=== PATIENT | male | born 1995 | race Caucasian/White ===

== ENCOUNTER → 2016-04-17 | Outpatient (CLI) | payer MEDICAID ==
[2016-04-17 11:11] LABS: BASO % 0.1 % (0.0-1.0); EOS # 0.1 K/mm3 (0.0-0.50); EOS % 1.2 % (0.0-3.0); LARGE UNSTAINED CELL # 0.1 K/mm3 (0.0-0.4); LARGE UNSTAINED CELL % 1.3 % (0.0-4.0); LYMPH # 1.3 K/mm3 (1.5-6.5); LYMPH % 18.1 % (24.0-44.0); MEAN CORPUSCULAR HEMOGLOBIN 29.2 pg (27.0-33.0); MEAN CORPUSCULAR HGB CONC 34.4 g/dl (32.0-36.5); MONO # 0.2 K/mm3 (0.0-0.8); MONO % 3.1 % (0.0-5.0); NEUTROPHILS # 5.5 K/mm3 (1.8-7.7); NEUTROPHILS % 76.1 % (36.0-66.0); RED CELL DISTRIBUTION WIDTH 13.7 % (11.5-14.5); WHITE BLOOD COUNT 7.2 K/mm3 (4.0-10.0)
[2016-04-17 11:29] LABS: PLATELET COUNT, AUTOMATED 66 k/mm3 (150-450)
== END ==
LOC: M LAB 10:28
PROVIDERS: ATTEND Family Medicine Addiction Medicine
DX: E05.90 Thyrotoxicosis, unspecified without thyrotoxic crisis or storm (principal); Q87.2 Congenital malformation syndromes predominantly involving limbs

== ENCOUNTER → 2016-05-08 | Emergency (ER) | payer MEDICAID ==
[~2016-05-08] VITALS: Ht 152.4 cm; Wt 49.9 kg
[2016-05-08 16:11] VITALS: BP 99/55
== END | disposition home or self-care (01) ==
LOC: M ED 14:38
DX: F43.0 Acute stress reaction (principal); R45.89 Other symptoms and signs involving emotional state; E73.9 Lactose intolerance, unspecified

== ENCOUNTER → 2018-05-15 | Outpatient (REF) | payer MEDICARE, MEDICAID ==
[2018-05-15 12:53] LABS: ALBUMIN 4.5 GM/DL (3.2-5.2); ALT/SGPT 17 U/L (12-78); BLOOD UREA NITROGEN 10 MG/DL (7-18); CALCIUM LEVEL 8.8 MG/DL (8.5-10.1); CARBON DIOXIDE LEVEL 29 MEQ/L (21-32); CHLORIDE LEVEL 107 MEQ/L (98-107); CHOLESTEROL LEVEL 136 MG/DL (<200); CHOLESTEROL RISK RATIO 3.162 (<5); CREATININE FOR GFR 0.75 MG/DL (0.70-1.30); GLOMERULAR FILTRATION RATE > 60.0 (>60); GLUCOSE, FASTING 96 MG/DL (70-100); HDL CHOLESTEROL 43 MG/DL (>40); LDL CHOLESTEROL 72 MG/DL (<100); NON-HDL-C 93 MG/DL; POTASSIUM SERUM 3.7 MEQ/L (3.5-5.1); SODIUM LEVEL 141 MEQ/L (136-145); TOTAL PROTEIN 7.5 GM/DL (6.4-8.2); TRIGLYCERIDES LEVEL 104 MG/DL (<150)
== END ==
LOC: M LAB REF 12:14
PROVIDERS: ATTEND Family Medicine Addiction Medicine
DX: Z00.00 Encounter for general adult medical examination without abnormal findings (principal); E05.90 Thyrotoxicosis, unspecified without thyrotoxic crisis or storm

== ENCOUNTER 2019-02-15 21:28 | Emergency (ER) | payer MEDICARE, MEDICAID ==
[~2019-02-15] VITALS: Ht 152.4 cm; Wt 50.0 kg
[2019-02-15 21:28] VITALS: BP 143/91
== END 2019-02-15 21:53 | disposition home or self-care (01) ==
LOC: M ED 21:28
DX: T16.1XXA Foreign body in right ear, initial encounter (principal); X58.XXXA Exposure to other specified factors, initial encounter; Y92.89 Other specified places as the place of occurrence of the external cause

== ENCOUNTER 2020-05-13 16:49 | Emergency (ER) | payer MEDICARE, MEDICAID ==
[2020-05-13 17:08] VITALS: BP 115/73
== END 2020-05-13 18:28 | disposition home or self-care (01) ==
LOC: M ED 16:49
DX: F41.9 Anxiety disorder, unspecified (principal); Q87.2 Congenital malformation syndromes predominantly involving limbs; Z91.011 Allergy to milk products

== ENCOUNTER 2020-12-22 21:58 | Emergency (ER) | payer MEDICARE, MEDICAID ==
[~2020-12-22] VITALS: Ht 157.5 cm; Wt 50.4 kg
[2020-12-22 21:59] VITALS: BP 142/87
--- OUTSIDE RECORDS SUMMARY | 2020-12-22 22:06 | CCD ---
Author Author [facility] Organization [facility] Address Unknown Phone Unavailable Care Team Providers Care Assembler Installer General Name Role Phone Alejandra Garcia MD Unavailable Unavailable Alejandra Garcia MD Unavailable Unavailable Alejandra Garcia MD Unavailable Unavailable Alejandra Garcia MD Unavailable Unavailable Alejandra Garcia MD Unavailable Unavailable Alejandra Garcia MD Unavailable Unavailable Alejandra Garcia MD Unavailable Unavailable Alejandra Garcia MD Unavailable Unavailable Alejandra Garcia MD Unavailable Unavailable Alejandra Garcia MD Unavailable Unavailable Alejandra Garcia MD Unavailable Unavailable Alejandra Garcia MD Unavailable Unavailable Alejandra Garcia MD Unavailable Unavailable Alejandra Garcia MD Unavailable Unavailable Alejandra Garcia MD Unavailable Unavailable Alejandra Garcia MD Unavailable Unavailable Alejandra Garcia MD Unavailable Unavailable Alejandra Garcia MD Unavailable Unavailable Alejandra Garcia MD Unavailable Unavailable Alejandra Garcia MD Unavailable Unavailable Alejandra Garcia MD Unavailable Unavailable Alejandra Garcia MD Unavailable Unavailable Alejandra Garcia MD Unavailable Unavailable Alejandra Garcia MD Unavailable Unavailable Alejandra Garcia MD Unavailable Unavailable Alejandra Garcia MD Unavailable Unavailable Alejandra Garcia MD Unavailable Unavailable Alejandra Garcia MD Unavailable Unavailable Alejandra Garcia MD Unavailable Unavailable Alejandra Garcia MD Unavailable Unavailable Alejandra Garcia MD Unavailable Unavailable Alejandra Garcia MD Unavailable Unavailable Alejandra Garcia MD Unavailable Unavailable Alejandra Garcia MD Unavailable Unavailable Alejandra Garcia MD Unavailable Unavailable Alejandra Garcia MD Unavailable Unavailable Alejandra Garcia MD Unavailable Unavailable Alejandra Garcia MD Unavailable Unavailable Alejandra Garcia MD Unavailable Unavailable Alejandra Garcia MD Unavailable Unavailable Alejandra Garcia MD Unavailable Unavailable Alejandra Garcia MD Unavailable Unavailable Alejandra Garcia MD Unavailable Unavailable Alejandra Garcia MD Unavailable Unavailable Alejandra Garcia MD Unavailable Unavailable Alejandra Garcia MD Unavailable Unavailable Garcia, Alejandra Herrera MD Unavailable Unavailable Garcia, Alejandra Herrera MD Unavailable Unavailable Garcia, Alejandra Herrera MD Unavailable Unavailable Garcia, Alejandra Herrera MD Unavailable Unavailable Garcia, D Javier MD Unavailable Unavailable Garcia, D Javier MD Unavailable Unavailable Garcia, D Javier MD Unavailable Unavailable Garcia, D Javier MD Unavailable Unavailable Garcia, D Javier MD Unavailable Unavailable Garcia, D Javier MD Unavailable Unavailable Garcia, Alejandra Herrera MD Unavailable Unavailable Garcia, Alejandra Herrera MD Unavailable Unavailable Garcia, D Javier MD Unavailable Unavailable Garcia, Alejandra Herrera MD Unavailable Unavailable Garcia, Alejandra Herrera MD Unavailable Unavailable Garcia, Alejandra Herrera MD Unavailable Unavailable Garcia, Alejandra Herrera MD Unavailable Unavailable Garcia, Alejandra Herrera MD Unavailable Unavailable Garcia, Alejandra Herrera MD Unavailable Unavailable Garcia, Alejandra Herrera MD Unavailable Unavailable Garcia, Alejandra Herrera MD Unavailable Unavailable Garcia, Alejandra Herrera MD Unavailable Unavailable Garcia, Alejandra Herrera MD Unavailable Unavailable Garcia, D Javier MD Unavailable Unavailable Garcia, D Javier MD Unavailable Unavailable Garcia, D Javier MD Unavailable Unavailable Garcia, D Javier MD Unavailable Unavailable Garcia, Alejandra Herrera MD Unavailable Unavailable Agrcia, Alejandra Herrera MD Unavailable Unavailable Garcia, Alejandra Herrera MD Unavailable Unavailable Garcia, Alejandra Herrera MD Unavailable Unavailable Garcia, Alejandra Herrera MD Unavailable Unavailable Garcia, Alejandra Herrera MD Unavailable Unavailable Garcia, Alejandra Herrera MD Unavailable Unavailable Garcia, Alejandra Herrera MD Unavailable Unavailable Garcia, Alejandra Herrera MD Unavailable Unavailable Garcia, Alejandra Herrera MD Unavailable Unavailable Garcia, Alejandra Herrera MD Unavailable Unavailable Garcia, Alejandra Herrera MD Unavailable Unavailable Garcia, Alejandra Herrera MD Unavailable Unavailable Garcia, Alejandra Herrera MD Unavailable Unavailable Garcia, D Javier MD Unavailable Unavailable Garcia, Alejandra Herrera MD Unavailable Unavailable Garcia, Alejandra Herrera MD Unavailable Unavailable Garcia, Alejandra Herrera MD Unavailable Unavailable Garcia, Alejandra Herrera MD Unavailable Unavailable Garcia, Alejandra Herrera MD Unavailable Unavailable Re-disclosure Warning The records that you are about to access may contain information from federally-assisted alcohol or drug abuse programs. If such information is present, then the following federally mandated warning applies: This information has been disclosed to you from records protected by federal confidentiality rules (42 CFR part 2). The federal rules prohibit you from making any further disclosure of this information unless further disclosure is expressly permitted by the written consent of the person to whom it pertains or as otherwise permitted by 42 CFR part 2. A general authorization for the release of medical or other information is NOT sufficient for this purpose. The Federal rules restrict any use of the information to criminally investigate or prosecute any alcohol or drug abuse patient.The records that you are about to access may contain highly sensitive health information, the redisclosure of which is protected by Article 27-F of the [facility] Public Health law. If you continue you may have access to information: Regarding HIV / AIDS; Provided by facilities licensed or operated by the [facility] Office of Mental Health; or Provided by the [facility] Office for People With Developmental Disabilities. If such information is present, then the following [facility] mandated warning applies: This information has been disclosed to you from confidential records which are protected by state law. State law prohibits you from making any further disclosure of this information without the specific written consent of the person to whom it pertains, or as otherwise permitted by law. Any unauthorized further disclosure in violation of state law may result in a fine or [place] [facility] sentence or both. A general authorization for the release of medical or other information is NOT sufficient authorization for further disc losure. Encounters Encounter Providers Location Date Indications Data Source(s ) Javier Garcia MD: [address] [place] [phone], Ph. Attender: Javier Garcia MD [facility] Medical 12/07/2020 12:00:00 AM EDT AG ([facility]) Javier Garcia MD: [address] [place] [phone], Ph. Attender: Javier Garcia MD [facility] Medical 12/02/2020 12:00:00 AM EDT AG ([facility]) Javier Garcia MD: [address] [place] [phone], Ph. Attender: Javier Garcia MD [facility] Medical 12/02/2020 12:00:00 AM EDT AG ([facility]) Medications No Information Insurance Providers Payer name Policy type / Coverage type Policy ID Covered constitution party ID Covered constitution party's relationship to gage Policy Gage Plan Information MEDICAID M [id number] Self [id number] Medicaid P [id number] S [id number] Medicaid S [id number] S [id number] MEDICARE [id number] SP [id number] G56 Medicare P [id number] S [id number] G56 Medicaid S [id number] S [id number] Medicare P [id number] S [id number] [place] [id number] SP [id number] Z MEDICAID [id number] S [id number] [place] [id number] SP [id number] MEDICAID [id number] SP [id number] MEDICAID [id number] SP [id number] MEDICARE [id number] SP [id number] G56 Medicare P [id number] S [id number] G56 Problems, Conditions, and Diagnoses No Information Surgeries/Procedures No Information Results No Information Social History No Information Vital Signs ID Date Data Source UNK Name Value Range Interpretation Code Description Data Source(s) Body height 62 [in_i] 62 [in_i] [place] ([facility]) Diastolic blood pressure 67 mm[Hg] 67 mm[Hg] [place] ([facility]) Body height 62 [in_i] 62 [in_i] [place] ([facility]) Body mass index (BMI) [Ratio] 18.9 kg/m2 18.9 k g/m2 [place] ([facility]) Systolic blood pressure 103 mm[Hg] 103 mm[Hg] [facility]) Body weight 1656 [oz_av] 1656 [oz_av] [place] ([facility]) Diastolic blood pressure 67 mm[Hg] 67 mm[Hg] [facility] ([facility]) Body height 62 [in_i] 62 [in_i] [facility] ([facility]) Body mass index (BMI) [Ratio] 18.9 kg/m2 18.9 k g/m2 [facility] ([facility]) Systolic blood pressure 103 mm[Hg] 103 mm[Hg] [facility]) Body weight 1656 [oz_av] 1656 [oz_av] [facility] ([facility])
--- OUTSIDE RECORDS SUMMARY | 2020-12-22 22:06 | CCD ---
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 Past Encounters 12/02/2020 Adult Health Examination; Radial Aplasia-thrombocytopenia Syndrome Javier Garcia MD: [address] [place] [address], Ph. Social History Tobacco Smoking Status Never Smoker Vaccine List Vaccine Type Hep A, unspecified formulation 08/02/2006 09/09/2007 Hep B, unspecified formulation 05/09/1997 09/22/1997 04/08/1998 Influenza, injectable, MDCK, preservativ e free, quadrivalent 05/07/20180.5 mL influenza, seasonal, injectable 03/18/20150.5 mL 04/25/20170.5 mL meningococcal, unspecified formulation 03/18/20150.5 mL Tdap 10/06/2008 05/07/20180.5 mL Plan of Care Reminders Provider Appointments None recorded. Lab None recorded. Referral None recorded. Procedures None recorded. Surgeries None recorded. Imaging None recorded. Vitals 12/02/2020 02:20PM ANNUAL EXAM Height Weight BMI Blood Pressure 62 in 103 lbs 8 oz 18.9 kg/m2 103/67 mm[Hg] 05/07/2018 Height Weight BMI Blood Pressure 60.5 in 109 lbs 8 oz 21.11 kg/m2 111/72 mm[Hg]
--- OUTSIDE RECORDS SUMMARY | 2020-12-22 22:06 | CCD ---
Author Organization Unknown Address [address] [place] [address] Phone [phone] Care Team Providers Care Worship Leader Name Role Phone Javier Garcia Unavailable Unavailable [...] Results Lab Results None recorded. Past Encounters 12/07/2020 Javier Garcia MD: [address] [place] [phone], Ph. 12/02/2020 Adult Health Examination; Radial Aplasia-thrombocytopenia Syndrome Javier Garcia MD: [address] [place] [address], Ph. Social History Tobacco Smoking Status Never [...] Surgeries None recorded. Imaging None recorded. Vitals 12/07/2020 08:40AM NURSE LAB COLLECTION Height 62 in 12/02/2020 02:20PM ANNUAL EXAM Height Weight BMI Blood Pressure 62 in 103 lbs 8 oz 18.9 kg/m2 103/67 mm[Hg] 05/07/2018 Height Weight BMI Blood Pressure 60.5 in 109 lbs 8 oz 21.11 kg/m2 111/72 mm[Hg]
--- OUTSIDE RECORDS SUMMARY | 2020-12-23 00:36 | CCD ---
Author Author [facility] Organization [facility] Address Unknown Phone Unavailable Care Team Providers Care Stretching Machine Tender Frame Name Role Phone Alejandra Garcia MD Unavailable [...] Unavailable Garcia, D Javier MD Unavailable Unavailable Re-disclosure Warning The records [...] is protected by Article 27-F of the [facility] Public Health law. If you continue you may have access to information: Regarding HIV / AIDS; Provided by facilities licensed or operated by the [facility] Office of Mental Health; or Provided by the [facility] Office for People With Developmental Disabilities. If such information is present, then the following [facility] mandated warning applies: This information has been [...] law may result in a fine or [facility] sentence or both. A general authorization for the release of medical or other information is NOT sufficient authorization for further disc losure. Encounters Encounter Providers Location Date Indications Data Source(s ) Javier Garcia MD: [address] [place] [phone], Ph. Attender: Javier Garcia MD [facility] Medical 12/07/2020 12:00:00 AM EDT AG ([facility]) Javier Garcia MD: [address] [place] [phone], Ph. Attender: Javier Garcia MD [facility] Medical 12/02/2020 12:00:00 AM EDT AG ([facility]) Javier Garcia MD: [address] [place] [phone], Ph. Attender: Javier Garcia MD [facility] Medical 12/02/2020 12:00:00 AM EDT [facility] ([facility]) Medications No Information Insurance Providers Payer name Policy type / Coverage type Policy ID Covered green party ID Covered green party's relationship to gage Policy Gage Plan Information MEDICAID M [id number] Self [id number] Medicaid P [id number] S [id number] Medicaid S [id number] S [id number] MEDICARE [id number] SP [id number] G56 Medicare P [id number] S [id number] G56 Medicaid S [id number] S [id number] Medicare P [id number] S [id number] [place] [id number] SP [id number] MEDICAID W [id number] S [id number] [place] [id number] SP [id number] MEDICAID [id number] SP [id number] MEDICAID [id number] SP [id number] MEDICARE [id number] SP [id number] [id number] Medicare P [id number] S [id number] G56 Problems, Conditions, and Diagnoses No Information Surgeries/Procedures No Information Results No Information Social History No Information Vital Signs ID Date Data Source UNK Name Value Range Interpretation Code Description Data Source(s) Body height 62 [in_i] 62 [in_i] [facility] ([facility]) Diastolic blood pressure 67 mm[Hg] 67 mm[Hg] [facility] ([facility]) Body height 62 [in_i] 62 [in_i] [place] ([facility]) Body mass index (BMI) [Ratio] 18.9 kg/m2 18.9 k g/m2 [facility] ([facility]) Systolic blood pressure 103 mm[Hg] 103 mm[Hg] [facility] ([facility]) Body weight 1656 [oz_av] 1656 [oz_av] [facility] ([facility]) Diastolic blood pressure 67 mm[Hg] 67 mm[Hg] [facility] ([facility]) Body height 62 [in_i] 62 [in_i] [place] ([facility]) Body mass index (BMI) [Ratio] 18.9 kg/m2 18.9 k g/m2 [facility] ([facility]) Systolic blood pressure 103 mm[Hg] 103 mm[Hg] [facility] ([facility]) Body weight 1656 [oz_av] 1656 [oz_av] [facility] ([facility])
== END 2020-12-23 01:00 | disposition home or self-care (01) ==
LOC: M ED 21:58
DX: F41.0 Panic disorder [episodic paroxysmal anxiety] (principal); E73.9 Lactose intolerance, unspecified